=== PATIENT | female | born 1980 | race Hispanic/Latino ===

== ENCOUNTER 2019-01-12 15:39 | Outpatient (CLI) | payer OTHER ==
--- NOTE | 2019-01-12 16:26 | RAD ---
RADIOGRAPH LUMBAR SPINE 2 VIEWS: DATE: 01/12/2019 HISTORY: 38-year-old female with low back pain for several months COMPARISON: None FINDINGS: For the purposes of this report, the first nonrib-bearing vertebra will be designated as L1. Vertebra l body heights are maintained. There is mild lateral curvature. No spondylolisthesis. Mild disc space narrowing at L3-4. At L4-5 moderate to severe disc space narrowing. L5 is a transitional level, with dysplastic, enlarged right transverse process that articulates with the right S1 ala. There are sclerotic degenerative changes at that pseudoarticulation. 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 IMPRESSION: 1) lumbosacral transitional vertebra type II A 2) high-grade degenerative disc disease at L4-5
== END 2019-01-12 15:40 | disposition home or self-care (01) ==
LOC: BICRAD 15:39
PROVIDERS: ATTEND Family Medicine
DX: M54.5 Low back pain (principal); M54.2 Cervicalgia; M51.36 Other intervertebral disc degeneration, lumbar region
CPT/HCPCS: 72100

== ENCOUNTER 2020-04-10 11:47 | Emergency (ER) | payer OTHER, SELFPAY ==
[2020-04-11 11:56] LABS: SARS-CoV-2 MS2 Positive; SARS-CoV-2 N Gene Negative; SARS-CoV-2 S Gene Negative; SARS-CoV-2 by NAA Not Detected (NotDetected); SARS-CoV-2 orf1ab Negative
== END 2020-04-10 12:00 | disposition home or self-care (01) ==
LOC: ERS 11:47
DX: R53.83 Other fatigue (principal); Z20.828 Contact with and (suspected) exposure to other viral communicable diseases
CPT/HCPCS: 87635; 99283; U0003